=== PATIENT | female | born 1990 | race Caucasian/White ===

== ENCOUNTER 2018-02-25 14:15 | Emergency (ER) | payer OTHER ==
[~2018-02-25] VITALS: Ht 152.4 cm; Wt 81.6 kg
[~2018-02-25 14:15] MED LIST: AMOX1TAB12 PO
== END 2018-02-25 18:22 | disposition home or self-care (01) ==
LOC: ER 14:15
DX: R51 Headache (principal)

== ENCOUNTER 2019-01-16 18:10 | Emergency (ER) | payer OTHER ==
[~2019-01-16] VITALS: Ht 162.6 cm; Wt 81.6 kg
[2019-01-17] MEDS ORDERED: PEPCID AC20 MG PO (03:08)
== END 2019-01-17 03:55 | disposition home or self-care (01) ==
LOC: ER 18:10
DX: R10.13 Epigastric pain (principal)